=== PATIENT | male | born 1975 | race Caucasian/White ===

== ENCOUNTER 2022-09-02 11:20 | Outpatient (REF) | payer BC, SELFPAY ==
[2022-09-02 14:45] LABS: Alanine Aminotransferase 23 U/L (0-40); Albumin Level 4.3 g/dL (3.5-5.0); Alkaline Phosphatase 68 U/L (39-117); Anion Gap 14 (12-20); Aspartate Amino Transferase 19 U/L (5-37); Bilirubin Total 0.5 mg/dL (0.0-1.0); Blood Urea Nitrogen 16 mg/dL (9-16); Calcium 9.5 mg/dL (8.4-10.2); Carbon Dioxide 28 mmol/L (22-29); Chloride 103 mmol/L (96-108); Cholesterol 270 mg/dL; Estimated Glomerular Filt Rate > 60; Glucose Random 110 mg/dL (60-115); HDL Cholesterol 48 mg/dL; LDL Cholesterol Calculated 196 mg/dl; Potassium 4.7 mmol/L (3.3-5.1); Sodium 140 mmol/L (135-145); Total Protein 6.7 g/dL (6.5-8.0); Triglycerides 132 mg/dL
[2022-09-02 14:51] LABS: Vitamin D 25-OH Total 30.2 ng/mL (>30)
== END 2022-09-02 11:21 | disposition home or self-care (01) ==
LOC: HO.MANLDS 11:20
PROVIDERS: Visit Provider Internal Medicine
DX: Z00.00 Encounter for general adult medical examination without abnormal findings (principal)
CPT/HCPCS: 36415; 80053; 80061; 82306

== ENCOUNTER 2024-03-15 15:10 | Outpatient (REF) | payer BC, SELFPAY ==
[2024-03-19 15:18] LABS: Testosterone, Total 425 ng/dL (250-1100)
== END 2024-03-15 15:11 | disposition home or self-care (01) ==
LOC: HO.MANLDS 15:10
PROVIDERS: Visit Provider Internal Medicine
DX: R53.83 Other fatigue (principal)
CPT/HCPCS: 36415; 84403